=== PATIENT | male | born 1955 ===

== ENCOUNTER 2021-04-10 17:33 | Emergency (ER) | payer MEDICARE, OTHER ==
[~2021-04-10] VITALS: Ht 182.9 cm; Wt 83.0 kg
[2021-04-10 19:49] VITALS: BP 153/114
[2021-04-10] MEDS ORDERED: methylPREDNISolone SOD SUCC 125 MG/2 ML VL IM ONE (20:00)
[2021-04-10 20:16] LABS: Basophils # (auto) 0.1 10 ^3/uL (0-0.2); Basophils % (auto) 0.7 % (0.0-2.0); Eosinophils # (auto) 0.3 10 ^3/uL (0-0.8); Eosinophils % (auto) 3.8 % (0.0-7.0); Hemoglobin 16.6 g/dL (13.5-17.5); Lymphocytes # (auto) 2.4 10 ^3/uL (0.4-5.4); Mean Corpuscular Hgb Conc. 34.7 g/dL (32.0-36.0); Mean Corpuscular Volume 92.3 fL (80.0-100.0); Monocytes # (auto) 0.8 10 ^3/uL (0-1.3); Monocytes % (auto) 8.8 % (0.0-12.0); Neutrophils # (auto) 5.5 10 ^3/uL (1.6-8.6); Neutrophils % (auto) 60.7 % (37.0-80.0); Nucleated Red Blood Cells % 0.1 %; Red Cell Distribution Width 13.3 % (11.8-14.3); White Blood Cell 9.1 10^3/uL (4.4-10.8)
[2021-04-10 20:30] LABS: Calcium 8.7 mg/dL (8.5-10.1); Potassium 4.4 mmol/L (3.5-5.1)
[2021-04-10 20:33] LABS: BUN/Creatinine Ratio 15.7; Bilirubin, Total 0.3 mg/dL (0.2-1.0); Total Protein 7.7 g/dL (6.4-8.2)
[2021-04-10] MEDS ORDERED: PRED20TA2 PO (21:15)
[2021-04-10] MEDS ORDERED: AMOX500T86 PO (21:15)
== END 2021-04-10 23:11 | disposition home or self-care (01) ==
LOC: ER 17:44
DX: H66.93 Otitis media, unspecified, bilateral (principal); I10 Essential (primary) hypertension
CPT/HCPCS: 36415; 70450; 80053; 85025; 96372; 99284; J2930